=== PATIENT | female | born 1985 | race American Indian/Alaskan Native ===

== ENCOUNTER 2018-03-29 10:03 | Emergency (ER) | payer OTHER ==
--- NOTE | 2018-03-29 10:38 | Emergency Department Report ---
Minor Respiratory - HPI Chief Complaint: Upper Respiratory Infection Stated Complaint: FLU LIKE Time Seen by Provider: 03/29/18 10:24 Duration: 2 weeks Pain Location: Facial, Throat, Chest Severity: moderate Minor Respiratory: Yes Rhinorrhea (yellow), Yes Sore Throat, Yes Able to Tolerate Fluids, Yes Cough (non productive), Yes Sick Contacts (several family members), No Ear Pain, No Hemoptysis, No Chest Pain, No Shortness of Breath, No Fever ED Review of Systems ROS: Stated complaint: FLU LIKE Other details as noted in HPI Comment: All other systems reviewed and negative ED Past Medical Hx - Past Medical History Previous Medical History?: No - Surgical History Past Surgical History?: No - Social History Smoking Status: Never Smoker Substance Use Type: None - Medications Home Medications: Home Medications Medication Instructions Recorded Confirmed Last Taken Type Amoxicillin/K Clav Tab [Augmentin 1 tab PO BID #14 tablet 12/05/13 Unknown Rx 875MG] Fluticasone [Flonase] 1 spray NS QDAY #1 bottle 12/05/13 Unknown Rx Naproxen [Naprosyn] 250 mg PO BID #20 tablet 12/05/13 Unknown Rx ALBUTEROL Inhaler (OR & NICU) 2 puff IH QID PRN #1 inhalation 03/29/18 Unknown Rx [ProAir HFA Inhaler] Amoxicillin/Potassium Clav 1 each PO BID #14 tablet 03/29/18 Unknown Rx [Augmentin 875-125 Tablet] Fluticasone [Flonase] 1 spray NS QDAY #1 bottle 03/29/18 Unknown Rx predniSONE [Deltasone] 20 mg PO QDAY #5 tab 03/29/18 Unknown Rx traMADol [Ultram] 50 mg PO Q6HR PRN #10 tablet 03/29/18 Unknown Rx Minor Respiratory Exam - Exam General: Vital signs noted. No distress. Alert and acting appropriately. HEENT: Yes Moist Mucous Membranes, Yes Frontal Tenderness, No Pharyngeal Erythema, No Pharyngeal Exudates, No Rhinorrhea, No Conjuctival Injection, No M axillary Tenderness Ear: Neither TM Bulge, Neither TM Erythema, Neither EAC Pain, Neither EAC Discharge Neck: Yes Supple, No Adenopathy Lungs: Yes Good Air Exchange, Yes Cough, No Wheezes, No Ronchi, No Stridor, No Labored Respirations, No Retractions, No Use of Accessory Muscles, No Other Abnormal Lung Sounds Heart: Yes Regular, No Murmur Abdomen: Yes Normal Bowel Sounds, No Tenderness, No Peritoneal Signs Skin: No Rash, No Edema Neurologic: Alert and oriented, no deficits. Musculoskeletal: Unremarkable. ED Course Vital Signs 03/29/18 10:16 Temperature 97.9 F Pulse Rate 69 Respiratory 18 Rate Blood Pressure 125/84 O2 Sat by Pulse 97 Oximetry ED Medical Decision Making - Medical Decision Making The duration of the patient's symptoms and the fact that she has tenderness on palpation of the frontal sinuses patient was started on Augmentin as well as measures for symptomatic relief will be discharged home. Critical care attestation.: If time is entered above; I have spent that time in minutes in the direct care of this critically ill patient, excluding procedure time. ED Disposition Clinical Impression: Sinusitis Qualifiers: Sinusitis location: frontal Chronicity: acute Recurrence: non-recurrent Qualified Code(s): J01.10 - Acute frontal sinusitis, unspecified Upper respiratory infection Qualifiers: URI type: unspecified URI Qualified Code(s): J06.9 - Acute upper respiratory infection, unspecified Disposition: DC-01 TO HOME OR SELFCARE Is pt being admited?: No Does the pt Need Aspirin: No Condition: Stable Instructions: Acute Bacterial Rhinosinusitis (ED) Referrals: JESSIE COOL MD [Primary Care Provider] - 3-5 Days Time of Disposition: 10:38
== END 2018-03-29 10:54 | disposition home or self-care (01) ==
LOC: ED 10:03
DX: J01.10 Acute frontal sinusitis, unspecified (principal)
CPT/HCPCS: 99282